=== PATIENT | female | born 1965 | race Caucasian/White ===

== ENCOUNTER 2018-04-12 05:56 | Inpatient (IN) | payer BC ==
[~2018-04-12] VITALS: Ht 162.6 cm; Wt 95.7 kg
[~2018-04-12 05:56] MED LIST: LOSA100T PO; METO25TA3 PO
[2018-04-12] MEDS ORDERED: METOPROLOL TARTRATE 25 MG TAB PO PRN (06:15)
[2018-04-12] MEDS ORDERED: LACTATED RINGER'S 1000 ML IV PRN (06:15)
[2018-04-12] MEDS ORDERED: SODIUM CHLORID 0.9% 500 ML IV PRN (06:15)
[2018-04-12] MEDS ORDERED: ceFAZolin 2 GM PREMIX 50 ML IV SCH (06:15)
[2018-04-12] MEDS ORDERED: CHLORHEXIDINE GLUCONATE 2 % 1 PACK (2 CLOTHS) TOPICAL PRN (06:15)
[2018-04-12] MEDS ORDERED: ACETAMINOPHEN 1000 MG/100 ML 100 ML IV SCH (06:15)
[2018-04-12] MEDS ORDERED: SCOPOLAMINE 1.5 MG PATCH T-DERMAL SCH (06:15)
[2018-04-12] MEDS ORDERED: POVIDONE IODINE 5% (ANTISEPSIS KIT) 4 APPLICATIONS EACH NARE PRN (06:15)
[2018-04-12] MEDS ORDERED: ONDANSETRON HCL 4 MG/2 ML VIAL IV PUSH SCH (06:15)
[2018-04-12] MEDS ORDERED: BUPIVACAINE/EPINEPHRINE 0.5% PF 30 ML VIAL ONE (06:58)
[2018-04-12] MEDS ORDERED: ARTIFICIAL TEARS OPTH OINT 3.5 APPLIC/3.5 GM TUBO ONE (07:57)
[2018-04-12] MEDS ORDERED: ENALAPRILAT 1.25 MG/ML VIAL IV PUSH PRN (09:45)
[2018-04-12] MEDS ORDERED: diphenhydrAMINE HCL 50 MG/ML VIAL IV PUSH PRN (09:45)
[2018-04-12] MEDS ORDERED: SODIUM CHLORIDE 0.9% FLUSH 10 ML FLUSH IV FLUSH PRN (09:45)
[2018-04-12] MEDS ORDERED: diphenhydrAMINE HCL ELIXIR 12.5 MG/5 ML CUP PO PRN (09:45)
[2018-04-12] MEDS ORDERED: MORPHINE SULFATE 30 MG/30 ML PCA IV SCH (09:45)
[2018-04-12] MEDS ORDERED: NALOXONE HCL 0.4 MG/ML AMP IV PUSH PRN (09:45)
[2018-04-12] MEDS ORDERED: Post-op Orders (for Pharmacy) OTHER ONE (09:45)
[2018-04-12] MEDS ORDERED: DO NOT ADM ANY ANTICOAGULANT DRUGS PRN (09:49)
[2018-04-12] MEDS ORDERED: *morphine SULFATE 8 MG/ML PERIprocedure ONLY ONE (09:52)
[2018-04-12] MEDS ORDERED: MIDAZOLAM HCL 2 MG/2 ML VIAL ONE (10:01)
[2018-04-12] MEDS: D5-1/2 NS + KCL 20 MEQ INJ 1,000 ML IV SCH ×2 (10:05→16:47)
[2018-04-12] MEDS ORDERED: *RESP: ALBUTEROL 2.5 MG/3 ML NEB (PRN) PERIprocedural Use ONLY NEB ONE (10:11)
[2018-04-12] MEDS ORDERED: HYDROmorphone HCL PF 2 MG/ML VIAL ONE (10:37)
[2018-04-12] MEDS: METOCLOPRAMIDE HCL 10 MG/2 ML VIAL IV PUSH SCH ×3 (11:22→23:28)
[2018-04-12] MEDS: RESP: ALBUTEROL 2.5 MG/3 ML NEB (SCH) INH ×2 (12:00→20:10)
[2018-04-12] MEDS: ACETAMINOPHEN 1000 MG/100 ML 100 ML IV SCH ×3 (12:22→23:27)
[2018-04-12] MEDS: PCA - TOTAL MG MORPHINE DELIVERED PER SHIFT SCH ×2 (14:00→20:35)
[2018-04-12] MEDS: ENOXAPARIN SODIUM 40 MG/0.4 ML SYRINGE SQ SCH (14:27)
[2018-04-12] MEDS: ONDANSETRON HCL 4 MG/2 ML VIAL IV PUSH PRN (14:28)
[2018-04-12 16:00] VITALS: BP 125/61; PULSE 95; RESP 18; TEMP 97.6; O2SAT 97
[2018-04-12] MEDS: ACETAMINOPHEN 325MG/HYDROcodone 7.5MG/15ML UDC PO PRN (19:03)
[2018-04-12] MEDS: METOCLOPRAMIDE HCL 10 MG/2 ML VIAL IV PUSH PRN (19:03)
[2018-04-12 20:00] VITALS: BP 109/54; PULSE 90; RESP 18; TEMP 98.4; O2SAT 93
[2018-04-12 20:10] VITALS: O2SAT 97
[2018-04-12] MEDS: SODIUM CHLORIDE 0.9% FLUSH 10 ML FLUSH IV FLUSH SCH (20:34)
[2018-04-13] VITALS (7 sets, daily range): BP systolic 109–158; BP diastolic 59–78; PULSE 74–91; RESP 16–18; TEMP 98–98.5; O2SAT 95–100
[2018-04-13] MEDS: RESP: ALBUTEROL 2.5 MG/3 ML NEB (SCH) INH ×6 (00:02→20:00)
[2018-04-13] MEDS: ACETAMINOPHEN 1000 MG/100 ML 100 ML IV SCH (04:35)
[2018-04-13] MEDS: METOCLOPRAMIDE HCL 10 MG/2 ML VIAL IV PUSH SCH (04:35)
[2018-04-13] MEDS: D5-1/2 NS + KCL 20 MEQ INJ 1,000 ML IV SCH ×3 (04:38→17:36)
[2018-04-13] MEDS: PCA - TOTAL MG MORPHINE DELIVERED PER SHIFT SCH (04:54)
[2018-04-13] MEDS: SODIUM CHLORIDE 0.9% FLUSH 10 ML FLUSH IV FLUSH SCH ×2 (07:39→21:38)
[2018-04-13] MEDS: PANTOPRAZOLE SOD 40 MG DELAYED RELEASE TAB PO SCH (07:45)
[2018-04-13] MEDS: ONDANSETRON HCL 4 MG/2 ML VIAL IV PUSH PRN ×3 (07:46→21:36)
[2018-04-13] MEDS: METOPROLOL TARTRATE 25 MG TAB PO SCH ×2 (09:55→21:37)
[2018-04-13] MEDS: ACETAMINOPHEN 325MG/HYDROcodone 7.5MG/15ML UDC PO PRN ×2 (09:55→21:38)
--- NOTE | 2018-04-13 10:22 | HHI.PR ---
Subjective Subjective Notes Pt tolerating PO fluids Pain well controlled Objective Vitals/I&O Vital Signs Date Time Temp Pulse Resp B/P (MAP) Pulse Ox O2 Delivery O2 Flow Rate FiO2 04/13/18 08:00 98.5 82 16 122/60 (80) 96 04/12/18 20:10 21 04/12/18 13:35 Nasal Cannula 2 Cardiovascular: Regular Lungs: Clear Abdomen: Post-op tenderness Extremities: Perfused Wound Wound : Wound Location: Abdomen Appearance: Clean & Dry A/P Assessment and Plan 52yo F POD#1 laparoscopic VSG -D/C [employer], transition to oral pain control -Restart BB for rate control -Continue with frequent ambulation -Continue to increase fluids as tolerated Discharge Planning D/C home most likely this evening Luis Fernando Matias Apr 13, 2018 10:22
[2018-04-13 10:29] LABS: AUTOMATED NEUTROPHIL # 7.1 TH/MM3 (1.8-7.7); BASOPHIL % 0.2 % (0.0-2.0); EOSINOPHIL % 0.1 % (0.0-4.0); HEMATOCRIT 40.4 % (35.0-46.0); HEMOGLOBIN 13.6 GM/DL (11.6-15.3); LYMPH % 22.3 % (9.0-44.0); LYMPHOCYTE # 2.3 TH/MM3 (1.0-4.8); MEAN CELL VOLUME 95.9 FL (80.0-100.0); MEAN CORPUSCULAR HEMOGLOBIN 32.4 PG (27.0-34.0); MEAN CORPUSCULAR HGB CONC 33.8 % (32.0-36.0); MEAN PLATELET VOLUME 8.8 FL (7.0-11.0); MONO % 10.2 % (0.0-8.0); MONOCYTE # 1.1 TH/MM3 (0-0.9); NEUT % 67.2 % (16.0-70.0); PLATELET COUNT 124 TH/MM3 (150-450); RED BLOOD COUNT 4.21 MIL/MM3 (4.00-5.30); RED CELL DISTRIBUTION WIDTH 12.6 % (11.6-17.2); WHITE BLOOD COUNT 10.5 TH/MM3 (4.0-11.0)
[2018-04-13 11:20] LABS: BICARBONATE 25.6 MEQ/L (21.0-32.0); CALCIUM 8.7 MG/DL (8.5-10.1); CREATININE 0.65 MG/DL (0.50-1.00); MAGNESIUM 2.2 MG/DL (1.5-2.5)
[2018-04-13] MEDS: SIMETHICONE 125 MG CHEWABLE TAB PO SCH ×2 (11:42→21:37)
[2018-04-13] MEDS ORDERED: POTASSIUM CHLOR 20 MEQ PREMIX 100 ML IV SCH (13:15)
[2018-04-13] MEDS: ENOXAPARIN SODIUM 40 MG/0.4 ML SYRINGE SQ SCH (13:38)
[2018-04-13] MEDS ORDERED: POTASSIUM CHLORIDE 20 MEQ PWD PACKET PO ONE (13:45)
[2018-04-13] MEDS: METOCLOPRAMIDE HCL 10 MG/2 ML VIAL IV PUSH PRN (16:09)
[2018-04-13] MEDS: SUCRALFATE 1 GM/10 ML CUP PO SCH ×3 (17:00→21:37)
[2018-04-13] MEDS: KETOROLAC TROMETHAMINE 10 MG TAB PO PRN (17:35)
[2018-04-14] VITALS: BP 144/69; PULSE 74; RESP 18; TEMP 98.4; O2SAT 96
[2018-04-14] MEDS: KETOROLAC TROMETHAMINE 10 MG TAB PO PRN ×2 (01:42→11:30)
[2018-04-14] MEDS: METOCLOPRAMIDE HCL 10 MG/2 ML VIAL IV PUSH PRN (02:00)
[2018-04-14] MEDS: RESP: ALBUTEROL 2.5 MG/3 ML NEB (SCH) INH ×3 (03:08→08:53)
[2018-04-14] MEDS: SIMETHICONE 125 MG CHEWABLE TAB PO SCH ×2 (04:42→11:09)
[2018-04-14] MEDS: D5-1/2 NS + KCL 20 MEQ INJ 1,000 ML IV SCH ×2 (04:42→07:52)
[2018-04-14] MEDS: SODIUM CHLORIDE 0.9% FLUSH 10 ML FLUSH IV FLUSH SCH (07:51)
[2018-04-14] MEDS: SUCRALFATE 1 GM/10 ML CUP PO SCH ×2 (07:51→12:08)
[2018-04-14] MEDS: PANTOPRAZOLE SOD 40 MG DELAYED RELEASE TAB PO SCH (07:51)
[2018-04-14] MEDS: METOPROLOL TARTRATE 25 MG TAB PO SCH (07:51)
[2018-04-14 08:00] VITALS: BP 156/77; PULSE 66; RESP 17; TEMP 98.2; O2SAT 97
[2018-04-14 08:53] VITALS: O2SAT 98
[2018-04-14] MEDS ORDERED: LOSARTAN 50 MG TAB PO SCH (09:00)
[2018-04-14] MEDS: ACETAMINOPHEN 325MG/HYDROcodone 7.5MG/15ML UDC PO PRN (09:16)
[2018-04-14 12:00] VITALS: BP 168/85; PULSE 67; RESP 17; TEMP 97.8; O2SAT 97
[2018-04-14] MEDS ORDERED: KETO10 PO (12:06)
--- NOTE | 2018-04-14 12:10 | HHI.PR ---
Subjective Subjective Notes Feeling better today Pain better controlled No GI complaints, tolerating fluids Objective Vitals/I&O Vital Signs Date Time Temp Pulse Resp B/P (MAP) Pulse Ox O2 Delivery O2 Flow Rate FiO2 04/14/18 08:53 98 21 04/14/18 08:00 98.2 66 17 156/77 (103) 04/12/18 13:35 Nasal Cannula 2 Abdomen: Post-op tenderness Extremities: Perfused Wound Wound : Wound Location: Abdomen Appearance: Clean & Dry A/P Assessment and Plan 52yo F POD#2 laparoscopic VSG -Continue with frequent ambulation -Continue to increase fluids as tolerated Discharge Planning D/C home today Luis Fernando Matias Apr 14, 2018 12:10
--- NOTE | 2018-04-16 15:20 | MP ---
cc: Louis Mcintosh MD DATE OF OPERATION: 04/12/2018 DATE OF : 1965 DATE OF OPERATION: 04/12/2018. PREOPERATIVE DIAGNOSES: 1. Severe obesity with a body mass index of 36, complicated by essential hypertension. 2. Hiatal hernia. POSTOPERATIVE DIAGNOSES: 1. Severe obesity with a body mass index of 36, complicated by essential hypertension. 2. Hiatal hernia. PROCEDURE PERFORMED: 1. Laparoscopic vertical sleeve gastrectomy over a 36-Lebanese ViSiGi bougie. 2. Laparoscopic hiatal hernia repair. SURGEON: Louis Mcintosh MD ANESTHESIA: General endotracheal anesthesia. ESTIMATED BLOOD LOSS: Scant. FINDINGS: Fatty liver, moderate sized hiatal hernia. SPECIMENS: None. COMPLICATIONS: None. PROCEDURE IN DETAIL: The patient was brought to the operating room, placed on operating table in a supine position. Bilateral sequential inflation device placed on the lower extremities. General anesthesia instituted. The abdomen was prepped and draped sterilely. A point 15 cm distal to the xiphoid in the midline anesthetized with 0.25% Marcaine with epinephrine. A skin incision was made. A 5 mL OptiView port placed under direct vision and pneumoperitoneum created. Under direct vision, two 5 mm left lower quadrant, a 15 mm right upper quadrant and a 5 mm right upper quadrant ports were placed. Prior to placement of all ports, the skin and peritoneum anesthetized with 0.25% Marcaine with epinephrine. The patient was placed in reverse Trendelenburg position left side up. The Marisela-flex retractor was placed. The left lobe of the liver was retracted. The vasculature along the greater curve of the stomach was taken down using the harmonic scalpel starting at a distance 5 cm proximal to the pylorus and carried towards the angle of His. The posterior ligamentous attachments sharply . There was a hiatal hernia identified. The left and right crura of the diaphragm were dissected. The GE junction was mobilized into the abdominal cavity. The hernia sac was excised. The crura of the diaphragm was approximated with 0-silk suture in a [id number] manner. The 36-Lebanese ViSiGi bougie was placed at the beginning of the case. It was placed on suction. Division of the stomach started 5 cm proximal to the pylorus and this was carried towards the angle of His to completely excise approximately 80% of the stomach. This was performed using an MYRelon flex stapler. The first firing was with a black load, followed by a green load and two gold loads. All staple loads were reinforced with SeamGuard. A distance of 2 cm was left from the angle incisura and the staple line. A distance of 1 cm left from the GE junction and the staple line. The bougie was then removed. Methylene blue was then instilled through the orogastric tube after occluding the pylorus. There was no evidence of extravasation. The gastrocolic ligament was then sutured to the posterior leaflet of the SeamGuard using a 2-0 Vicryl suture in a running manner for the entire staple line. The bleeding points were controlled with Evicel. The excised stomach was removed from the peritoneal cavity in an Endopouch through the 15 mm port site. The fascia at the 15 mm port site approximated using an 0-Vicryl suture. The abdominal wall was then cleaned and a sterile dressing placed. The patient was awakened and taken to the recovery room. MD EDWARDO Chiang/FEMI , 03:09 PM , 03:18 PM
== END 2018-04-14 13:24 | disposition home or self-care (01) | DRG 621 ==
LOC: HSDI 05:56 → EDSTATUS 08:00 → N07B 13:52
PROVIDERS: ADMIT Surgery; ATTEND Surgery
PROC: 0BQT4ZZ Repair Diaphragm, Percutaneous Endoscopic Approach (ICD-10-PCS; 2018-04-12)
PROC: 0DB64Z3 Excision of Stomach, Percutaneous Endoscopic Approach, Vertical (ICD-10-PCS; principal; 2018-04-12 08:05)
DX: E66.01 Morbid (severe) obesity due to excess calories (principal); K76.0 Fatty (change of) liver, not elsewhere classified; I10 Essential (primary) hypertension; K44.9 Diaphragmatic hernia without obstruction or gangrene; R73.9 Hyperglycemia, unspecified; Z68.36 Body mass index [BMI] 36.0-36.9, adult; Z88.8 Allergy status to other drugs, medicaments and biological substances; Z87.891 Personal history of nicotine dependence
CPT/HCPCS: 80048; 83735; 85025; 94150; 94640; 94664; J0131; J0690; J1170; J1650; J2250; J2270; J2405; J2765; J3010; J3480; J7120; J7613